=== PATIENT | male | born 1985 | race Caucasian/White ===

== ENCOUNTER 2018-08-08 08:52 | Day surgery (SDC) | payer SELFPAY ==
[~2018-08-08] VITALS: Ht 175.3 cm; Wt 79.4 kg
[2018-08-08 09:14] LABS: Hematocrit 46.1 % (37.0-53.0); Hemoglobin 16.1 g/dL (13.5-17.5); Mean Corpuscular HGB 31.2 pg (26.0-34.0); Mean Corpuscular HGB Conc 34.9 g/dL (31.5-36.5); Mean Corpuscular Volume 89 fL (80-100); Mean Platelet Volume 9.8 fL (9.1-12.4); Platelet Count 186 K/mm3 (150-400); Red Blood Cell Count 5.16 M/mm3 (4.30-5.90); White Blood Cell Count 6.71 K/mm3 (4.00-11.30)
[2018-08-08 09:33] LABS: Anion Gap 11 mmol/L (6-16); Blood Urea Nitrogen 8 mg/dL (8-24); Bun/Creatinine Ratio 8.5 (12.0-20.0); CO2, Blood 22 mmol/L (21-32); Calcium, Blood 8.7 mg/dL (8.5-10.1); Chloride, Blood 106 mmol/L (98-108); Creatinine, Blood 0.94 mg/dL (0.60-1.20); Glomerular Filtration Rate >60 (60-); Glucose, Blood 111 mg/dL (70-99); Sodium, Blood 139 mmol/L (136-145)
--- NOTE | 2018-08-08 11:42 | NUR ---
SURGERY: DR BOYCE IN ROOM TO DO H+P AND ASSESS WOUND. SURGICAL PKT COMPLETED. 18G IV STARTED. PT VOIDED. GIRLFRIEND AT BEDSIDE. TO THE OR AT THIS TIME. WILL MONITOR WHEN RETURNS TO ROOM POST OP.
--- NOTE | 2018-08-08 11:48 | NUR ---
PT TO SDS WITH GF. PT WATCHING GOLF ON HIS PHONE. LT FOOT HAS COBAN WRAPPED AROUND WOUND. PT STATES NO PAIN AT THIS TIME. PT STATES HAS NOT EATEN SINCE LAST NIGHT. VSS. NO COMPLAINTS AT THIS TIME.
--- NOTE | 2018-08-08 11:50 | NUR ---
18G TO YFN PATENT AND INFSUING LR
--- NOTE | 2018-08-08 11:55 | NUR ---
CANOPY STRINGER (DEBORAH) AT BEDSIDE. REPORT DONE. PT CONTINUES TO WATCH GOLF ON HIS PHONE.
--- NOTE | 2018-08-08 13:13 | NUR ---
PT CAME TO PACU AWAKE WITH C/O PAIN. PT IS MOVING IN BED AND TRYING TO GET COMFORTABLE. HR/BP HIGH WILL MONITOR MOST LIKELY D/T PAIN DR ANDRADE AWARE. PT HAS BEEN GIVEN TORADOL AND FENTANYL. PT MOUTH WAS SWABBED. PT APPEARS TO BE DOING ALITTLE BETTER. PT STATES "ITS DOING ALITTLE BETTER"
[2018-08-08] MEDS ORDERED: TRAM50 PO (16:13)
[2018-08-08] MEDS ORDERED: CEPH500 PO (16:14)
--- NOTE | 2018-08-08 16:54 | NUR ---
DISCHARGE: PT DC TO HOME AT THIS TIME WITH GIRLFRIEND. IVS DC'D WNL. POST OP SHOE PLACED TO SURGICAL FOOT. PT ABLE TO TRANSFER AND AMBULATE INDEP WHILE MAINTAINING NWB STATUS. VERBALIZED UNDERSTANDING OF INSTRUCTIONS, FOLLOW UP, PROBLEMS TO REPORT AND MEDICATIONS. PT LEFT VIA WHEELCHAIR WITH BELONGINGS.
== END 2018-08-08 16:30 | disposition home or self-care (01) ==
LOC: ER 08:52 → SURS 09:41 → ORSCMMR 10:33 → SURS 10:58 → ORSCMMR 16:30
PROVIDERS: Emergency Medicine; Orthopaedic Surgery
PROC: 0QDP0ZZ Extraction of Left Metatarsal, Open Approach (ICD-10-PCS; principal; 2018-08-08 10:15)
DX: S91.312A Laceration without foreign body, left foot, initial encounter (principal); S92.312B Displaced fracture of first metatarsal bone, left foot, initial encounter for open fracture; W31.2XXA Contact with powered woodworking and forming machines, initial encounter; F17.220 Nicotine dependence, chewing tobacco, uncomplicated
CPT/HCPCS: 73630; 80048; 85027; 90471; 90714; 96365; 96375; 96376; 99284-25; J0690; J1170; J1885; J2250; J3010; J7120